=== PATIENT | male | born 1995 | race African-American/Black ===

== ENCOUNTER 2025-01-06 16:05 | Emergency (ER) | payer MEDICAID, OTHER ==
[~2025-01-06] VITALS: Ht 170.2 cm; Wt 63.6 kg
[2025-01-06 16:20] VITALS: TEMP 98.3
--- NOTE | 2025-01-06 17:26 | ED.PDOC ---
Fidelt. trauma (HPI) HPI Comments 29 y/o M, presents to the ED for CC of s/p fall injury. Patient states, that he fell off his skateboard yesterday (01/05/25) while trying to do a heel flip landing on his left hand and twisting his right ankle. Following trauma, patient c/o pain with associated swelling to his left heel, left hand, and right ankle. Patient denies head injury, open wounds, lacerations, abrasions, LOC, nausea, or vomiting. No other symptoms or modifying factors present at this time. Chief Complaint: Fall Injury Time Seen by MD: 16:40 Reviewed notes: Nurses Notes, Medications, Allergies Allergies: Coded Allergies: NO KNOWN ALLERGIES (Unverified , 01/06/25) Information Source: Patient Mode of Arrival: Ambulatory Severity: Moderate Timing: Minutes Duration: Since onset Prehospital treatment: None Location: (R) Ankle, (L) Hand, Other (left heel) Location of laceration: None Mechanism: Sporting Associated signs and symtoms: None Past Medical History PAST MEDICAL HISTORY: Denies Surgical History: Denies all surgeries Family History Family History: Unknown Social History Smoker: Non-Smoker Alcohol: Denies ETOH Use Drugs: Denies Drug Use Lives In: Home Constitutional: denies: chills, diaphoresis, fatigue, fever, malaise, sweats, weakness, others EENTM: denies: blurred vision, double vision, ear bleeding, ear discharge, ear drainage, ear pain, ear ringing, eye pain, eye redness, hearing loss, mouth pain, mouth swelling, nasal discharge, nose bleeding, nose congestion, nose pain, photophobia, tearing, throat pain, throat swelling, voice changes, others Respiratory: denies: cough, hemoptysis, orthopnea, SOB at rest, shortness of breath, SOB with excertion, stridor, wheezing, others Cardiovascular: denies: chest pain, dizzy spells, diaphoresis, Dyspnea on exertion, edema, irregular heart beat, left arm pain, lightheadedness, palpitations, PND, syncope, others Gastrointestinal: denies: abdomen distended, abdominal pain, blood streaked bowels, constipated, diarrhea, dysphagia, difficulty swallowing, hematemesis, melena, nausea, poor appetite, poor fluid intake, rectal bleeding, rectal pain, vomiting, others Genitourinary: denies: burning, dysuria, flank pain, frequency, hematuria, incontinence, penile discharge, penile sore, pain, testicle pain, testicle swelling, urgency, others Neurological: denies: dizziness, fainting, headache, left sided numbness, left sided weakness, numbness, paresthesia, pre-existing deficit, right sided numbness, right sided weakness, seizure, speech problems, tingling, tremors, weakness, others Musculoskeletal: reports: others (left hand, left heel, and right ankle pain); denies: back pain, gout, joint pain, joint swelling, muscle pain, muscle stiffness, neck pain Integumetry: denies: bruises, change in color, change in hair/nails, dryness, laceration, lesions, lumps, rash, wounds, others Allergic/Immunocompromised: denies: Difficulty Healing, Frequent Infections, Hives, Itching, others Hematologic/Lymphatic: denies: anemia, blood clots, easy bleeding, easy bruising, swollen glands, others Endocrine: denies: excessive hunger, excessive sweating, excessive thirst, excessive urination, flushing, intolerance to cold, intolerance to heat, unexplained weight gain, unexplained weight loss, others Psychiatric: denies: anxiety, bipolar disorder, depression, hopeless, panic disorder, schizophrenia, sleepless, suicidal, others All Other Systems: Reviewed and Negative Physical Exam General Appearance: No Apparent Distress, Normal HEENT: Normal ENT Inspection, Pharynx Normal Neck: Full Range of Motion, Non-Tender, Normal, Normal Inspection Respiratory: Chest Non-Tender, Lungs Clear, No Accessory Muscle Use, No Respiratory Distress, Normal Breath Sounds Cardiovascular: No Edema, No Murmur, No Gallop, Normal Peripheral Pulses, Regular Rate/Rhythm Breast Exam: Deferred Gastrointestinal: No Organomegaly, Non Tender, No Pulsatile Mass, Normal Bowel Sounds, Soft Genitalia: Deferred Pelvic: Deferred Rectal: Deferred Extremities: Normal capillary refill, Normal inspection, Normal range of motion, No pedal edema Musculoskeletal : Location: Right Extremity Location: Ankle (right ankle), Foot (left heel tenderness & swe lling), Hand (left hand tenderness & swelling) Apperance: Swelling, Tenderness (right ankle) Neurologic: Alert, robotics technologist II-XII nml as Tested, No Motor Deficits, Normal Affect, Normal Mood, No Sensory Deficits Cerebellar Function: Normal Reflexes: Normal Skin: Dry, Normal Color, Warm Lymphatic: No Adenopathy Was a procedure done? Was a procedure done?: No Differential Diagnosis Multiple Trauma: Fractures, Other (dislocation) X-Ray, Labs, Meds, VS Vital Signs Date Time Temp Pulse Resp B/P (MAP) Pulse Ox O2 Delivery O2 Flow Rate FiO2 01/06/25 16:20 98.3 77 16 108/69 (82) 95 98.3 X-Ray, Labs, Meds, VS Comment X-ray shows fracture of the left hand 4th metacarpal Patient placed in a boxer's splint, good circulation and motor skills pre and post splint application Patient advised to follow up with grants specialist next available appointment Sent home with ibuprofen 800 for pain control A started applied to bilateral ankles Time of 1ST Reevaluation: 17:10 Reevaluation 1ST: Unchanged Patient Education/Counseling: Diagnosis, Treatment, Need For Follow Up (Follow up with grants specialist in next available appointment) Family Education/Counseling: No Family Present Departure 1 Departure Time of Disposition: 17:43 Impression: Primary Impression: Left hand fracture Qualified Codes: S62.92XA - Unspecified fracture of left wrist and hand, initial encounter for closed fracture Additional Impression: Ankle sprain Qualified Codes: S93.499A - Sprain of other ligament of unspecified ankle, initial encounter Disposition: HOME / SELF CARE / HOMELESS Condition: Fair Referrals: GONZALO DOMINIQUE MD Additional Instructions: Fracture of the left hand 4th metacarpal closed e-Prescriptions Ibuprofen Micronized (Ibuprofen) 800 Mg Tab 800 MG PO TID PRN, #30 TAB Prov: LINN SARAVIA 01/06/25 Discharged With: Self Critical Care Note Critical Care Time?: No Stability Stability form required: No Heart Score Heart Score: Heart Score Response (Comments) Value History N/A 0 EKG N/A 0 Age N/A 0 Risk Factors N/A 0 Troponin N/A 0 Total 0 I personally scribed for LINN SARAVIA ([email or web address]) on 01/06/25 at 17:26. Electronically submitted by Kathleen Bucio ([email or web address]). I personally scribed for LINN SARAVIAP ([email or web address]) on 01/06/25 at 17:26. Electronically submitted by Kathleen Bucio ([email or web address]). I personally scrib[facility] on 01/06/25 at 17:30. Electronically submitted by Kathleen Bucio ([email or web address]). LINN SARAVIA Jan 06, 2025 17:26
--- NOTE | 2025-01-06 17:32 | DVH ---
EXAM: XY R ANKLE 3 VIEW REASON FOR EXAM: fall TECHNIQUE: AP, lateral, and oblique views of the right ankle are submitted for review. COMPARISON: None FINDINGS: The bones demonstrate normal mineralization. No fracture or dislocation is identified. The ankle mortise is maintained. There are no significant degenerative changes. The soft tissues are unr emarkable. IMPRESSION: No acute fracture or dislocation.
--- NOTE | 2025-01-06 17:34 | DVH ---
EXAM: XY L FOOT 3 VIEW XRAY REASON FOR EXAM: Pain after a fall TECHNIQUE: AP, lateral, and oblique views of the left foot are submitted for review. COMPARISON: None FINDINGS: The bones demonstrate normal mineralization. No fracture or dislocation is identified. The re are no significant degenerative changes. The soft tissues are unremarkable. IMPRESSION: No acute fracture or dislocation.
--- NOTE | 2025-01-06 17:37 | DVH ---
Indication: fall Technique: XY L HAND 3V XRAYXY Comparison: None FINDINGS/IMPRESSION: Fracture of the 4th metacarpal mid shaft. Dorsal left hand soft tissue edema.
[2025-01-06] MEDS ORDERED: IBUP-1455 PO (17:44)
[2025-01-06] MEDS ORDERED: ACE3T PO (19:10)
[2025-01-06 19:25] VITALS: BP 108/69; PULSE 77; RESP 16; O2SAT 95
== END 2025-01-06 19:30 | disposition home or self-care (01) ==
LOC: EDBD 16:05 → ER 16:05
DX: S62.325A Displaced fracture of shaft of fourth metacarpal bone, left hand, initial encounter for closed fracture (principal); S93.491A Sprain of other ligament of right ankle, initial encounter; M79.672 Pain in left foot; V00.131A Fall from skateboard, initial encounter; Y93.I9 Activity, other involving external motion; Y92.89 Other specified places as the place of occurrence of the external cause; Y99.8 Other external cause status
CPT/HCPCS: 29125; 73130; 73610; 73630